=== PATIENT | male | born 1985 | race Caucasian/White ===

== ENCOUNTER 2024-01-14 08:34 | Emergency (ER) | payer MEDICAID, SELFPAY ==
[2024-01-14 08:43] VITALS: BP 134/93; PULSE 89; RESP 17; TEMP 36.4; O2SAT 97; BMI 24.3
--- NOTE | 2024-01-14 08:54 | XR_ITS ---
Examination: Ribs, left, with PA chest, 5 views Technique: Chest PA, RIBS AP, RPO, LPO, AP coned lower ribs 5 views Exam date and time: January 14, 2024 0858 hrs. Indications: Injury to the left chest today, left rib pain Findings: Normal heart size No pneumothorax No pulmonary contusion No acute rib fractures Impression: No pneumothorax pulmonary contusion or hemothorax No acute rib fractures
--- NOTE | 2024-01-14 08:54 | XR_ITS ---
Examination: Foot, left, 3 views Technique: AP, oblique, lateral views foot, 3 views Date and time of exam: January 14, 2024 0859 hrs. Indications: Redness swelling and pain involving the foot this week. Findings: Mild bunion deformity No fracture No cortical bone destruction No opaque foreign body Impression: No cortical bone destruction No opaque foreign body
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
[2024-01-14] MEDS: KETOROLAC INJ 60 MG/2 ML VIAL 30 MG IM (09:20)
== END 2024-01-14 10:43 | disposition home or self-care (01) ==
PROVIDERS: Emergency Provider Emergency Medicine; PCP Family Medicine
DX: S99.922A Unspecified injury of left foot, initial encounter (principal); L03.116 Cellulitis of left lower limb; S29.9XXA Unspecified injury of thorax, initial encounter; X58.XXXA Exposure to other specified factors, initial encounter; Y93.01 Activity, walking, marching and hiking; V19.9XXA Pedal cyclist (driver) (passenger) injured in unspecified traffic accident, initial encounter; Y93.55 Activity, bike riding; Y92.828 Other wilderness area as the place of occurrence of the external cause
CPT/HCPCS: 71101; 73630; 96372; 99283; J1885

== ENCOUNTER 2024-09-10 19:37 | Emergency (ER) | payer MEDICAID, SELFPAY ==
[2024-09-10 19:41] VITALS: BMI 23.6
--- NOTE | 2024-09-10 19:56 | XR_ITS ---
Examination: Wrist, left 3 views Technique: Wrist AP, oblique, lateral 3 views Date and time of exam: September 10, 20242021 hours INDICATIONS: Boxing injury to the hand 2 days ago, splenic pain and swelling FINDINGS: Acute impacted comminuted displaced fractures base first metacarpal Dorsal dislocation of the second metacarpal IMPRESSION: Acute comminuted displaced fracture first metacarpal Dorsal dislocation of the base of the second metacarpal
--- NOTE | 2024-09-10 19:56 | XR_ITS ---
Examination: Left hand 2 views TECHNIQUE: AP lateral left hand 2 views Date and time: September 10, 2024, 2022 hours INDICATIONS: Boxing injury 2 days ago with hand pain. FINDINGS: Acute comminuted displaced impacted fractures proximal first metacarpal Dorsal dislocation base second metacarpal Digits intact IMPRESSION: Acute impacted comminuted fractures proximal first metacarpal Dorsal dislocation base second metacarpal
[2024-09-10 20:57] VITALS: BP 131/92; PULSE 60; RESP 19; TEMP 36.6; O2SAT 98
--- NOTE | 2024-09-10 23:00 | PD.EDHAND ---
Upper Extremity Injury RME/HPI General Chief Complaint: Hand/Wrist Problems Stated Complaint: INJURY L HAND Time Seen by Provider: 09/10/24 19:45 Arrival date/time: 09/10/24 19:37 This is a case of 38-year-old male who came into the emergency room due to left hand pain and swelling along with the left wrist patient last Tuesday had boxing tournament and started to have the symptoms worsening of the symptoms this patient decided to start consult here in the emergency room denies any numbness weakness or tingling sensation Limitations: no limitations Related Data Previous Rx's ?Medication ?Instructions ?Recorded ibuprofen 800 mg tablet 800 mg PO TID PRN pain #30 tabs 12/02/23 sulfamethoxazole 800 1 tab PO BID #14 tabs 12/02/23 mg-trimethoprim 160 mg tablet (Bactrim DS) ibuprofen 600 mg tablet 600 mg PO Q8H PRN pain #20 tabs 01/14/24 Allergies Allergy/AdvReac Type Severity Reaction Status Date / Time No Known Allergies Allergy Mild NONE Uncoded 09/10/24 19:40 Review of Systems Review of Systems Systems Reviewed: All systems reviewed, normal except as documented Constitutional Constitutional: Reports system reviewed and no additional complaints, except as documented and Reports as per HPI ENT Ears, Nose, Mouth, and Throat: Denies neck pain Cardiovascular Cardiovascular: Reports system reviewed and no additional complaints, except as documented and Reports as per HPI Respiratory Respiratory: Reports system reviewed and no additional complaints, except as documented and Reports as per HPI Gastrointestinal Gastrointestinal: Reports system reviewed and no additional complaints, except as documented and Reports as per HPI Genitourinary Genitourinary: Reports system reviewed and no additional complaints, except as documented and Reports as per HPI Musculoskeletal Musculoskeletal: Reports system reviewed and no additional complaints, except as documented, Reports as per HPI, Denies abnormal gait, Denies arthralgias, Denies atrophy, Denies back pain, Denies deformity, Denies joint swelling, Denies limited range of motion, Denies loss of height, Denies muscle cramps, Denies muscle weakness, Denies myalgias, Denies neck pain, Denies numbness, Denies radiating pain into limb, Denies stiffness and Denies tingling Integumentary/Breasts Skin/Breast: Reports system reviewed and no additional complaints, except as documented and Reports as per HPI Neurologic Neurologic: Reports system reviewed and no additional complaints, except as documented, Reports as per HPI, Denies abnormal gait, Denies numbness and Denies tingling Past Medical History Past Medical History CARDIAC: Negative Congestive Heart Failure RESPIRATORY: Negative Chronic Obstructive Pulmonary Disease (COPD) GENITOURINARY: Negative Renal Disease ENDOCRINE: Negative Diabetes Mellitus Type 1 or Diabetes Mellitus Type 2 Social History SMOKING STATUS: Never smoker ED Exam General Limitations: Present no limitations General appearance: Present alert and in no apparent distress Head Head exam: Present atraumatic Eye Eye exam: Present normal appearance, PERRL and EOMI ENT ENT exam: Present normal exam, normal oropharynx and mucous membranes moist Neck Neck exam: Present normal inspection, full ROM and trachea midline Chest Chest inspection: Present normal inspection and symmetric chest wall rise Respiratory Respiratory exam: Present normal lung sounds bilaterally; Absent respiratory distress, wheezes, stridor, accessory muscle use or prolonged expiratory phase Cardiovascular Cardiovascular exam: Present regular rate, normal rhythm and normal heart sounds; Absent bradycardia, tachycardia, irregular rhythm or systolic murmur Abdominal Exam Abdominal exam: Present soft; Absent distention, tenderness, guarding, rebound, normal bowel sounds, diminished bowel sounds, hyperactive bowel sounds or hypoactive bowel sounds Extremities Exam Extremities exam: Present normal inspection and full ROM Expanded Upper Extremity Exam Forearm/Wrist exam: Present tenderness, swelling and other (ROM intact neurovascular intact); Absent abrasion, laceration, ecchymosis, deformity, crepitus, dislocation, erythema, tenderness over anatomical snuff box or pain with axial thumb loading Hand exam: Present tenderness, swelling and other (Noted moderate tenderness swelling on the dorsal aspect medial aspect of the left hand no snuffbox tenderness ROM limited pulses were full and equal capillary refill less than 2 seconds sensory); Absent abrasion, laceration, skin avulsion, ecchymosis, deformity, crepitus, dislocation, amputation, nail avulsion or subungual hematoma Back Exam Back exam: Present normal inspection and full ROM Neurological Exam Neurological exam: Present alert, oriented X3, CN II-XII intact, normal gait and reflexes normal; Absent motor sensory deficit Psychiatric Psychiatric exam: Present normal affect and normal mood Skin Skin exam: Present warm, dry, intact and normal color Course Quality Measures none Orders Category Date Time Status Splint / Immobilizer STAT Care 09/10/24 21:42 Active XR hand LT 2V Stat Exams 09/10/24 19:56 Completed XR wrist LT 2V Stat Exams 09/10/24 19:56 Completed HYDROcodone*/APAP 5/325 [Cameron 5/325] Med 09/10/24 21:42 Discontinued 1 tab PO X1 ONE Vital Signs Vital signs: Vital Signs Temperature 98 F 09/10/24 20:57 Pulse Rate 60 09/10/24 20:57 Respiratory Rate 19 09/10/24 20:57 Blood Pressure 131/92 H 09/10/24 20:57 Pulse Oximetry (%) 98 09/10/24 20:57 Oxygen Delivery Method Room Air 09/10/24 20:57 Oxygen saturation 98% in room Extremity Injury MDM Narrative MDM Narrative:: This is a case of 38-year-old male who came into the emergency room due to left hand pain and swelling along with the left wrist patient last Tuesday had boxing tournament and started to have the symptoms worsening of the symptoms this patient decided to start consult here in the emergency room denies any numbness weakness or tingling sensation physical examination patient is awake alert oriented not in distress nontoxic looking noted tenderness swelling on the left wrist ROM is intact neurovascular intact there is a marked swelling and tenderness on the left hand no snuffbox tenderness no crepitation no deformity ROM limited neurovascular intact x-ray showed a metacarpal fracture of the 1st and 2nd left hand a thumb spica volar splint was applied patient tolerated well neurovascular intact I have a long discussion with the patient importance to see an orthopedic surgeon for further evaluation and treatment of the fracture was advised RICE treatment will continue by the patient at home patient was given Cameron here in the emergency room and prescribed ibuprofen for any worsening symptoms he is informed to return in the emergency room immediately or call [phone] Patient was discharged with comfortable condition walking with stable gait. Patient verbalized no further complains explained diagnosis and answered patient question. Patient is comfortable with the proposed management plan including the need to follow up with his/her primary care physician and any specialist if applicable Discussed patient for any urgent condition or worsening sx, He/She needed to go to emergency room immediately or call 911. Patient acknowledge the responsibility to follow up as instructed and to monitor her/his symptoms. For any persistence of the symptoms for more than 3-5 days return precaution advised. Discussed the result of the test and was given printed discharge instruction Patient data External records reviewed:: [facility] previous records Clinical information provided by:: patient Social determinants that could affect healthcare access:: none Patient has the following chronic illnesses:: None How is presenting disease/condition affected by chronic disease/condition?: no chronic disease Evaluation data The following diagnostics were reviewed and interpreted by me:: radiology exam(s) Lab and/or radiology exams considered but not ordered:: Reviewed Interpretation Summary: Reviewed Medications / Prescriptions Medications or Prescriptions considered but not ordered:: Given Medication administrations:: Medication Administration History Discontinued Medications Hydrocodone Bitart/Acetaminophen (Hydrocodone/Apap 5/325 Tablet) 1 tab PO X1 ONE Stop: 09/10/24 21:43 Given Consultations Consultation(s) initiated? (list below): No Diagnosis Upper Extremity Injury Differential Diagnosis: other (Metacarpal fracture sprain) Most likely diagnosis given after review of the tests above:: Metacarpal fracture Admission Indicated Admission indicated?: not indicated Explain why admission is indicated or not indicated:: Not indicated Admission Request Was there a request for admission?: No Disposition Plan Disposition Plan: Discharge Discharge Attestation Discharge Attestation: The patient and all family members were given an opportunity to ask questions and understood the discharge instructions. Discharge instructions specifically effects, indications for sooner follow up or return to the emergency department, and the expected course of current diagnosis. Patient condition: Stable Discharge Plan Plan Patient Disposition: HOME (Self Care) Prescriptions/Referrals Prescriptions/Med Rec: No Action sulfamethoxazole-trimethoprim [Bactrim DS] 800-160 mg tablet 1 tab PO BID Qty: 14 0RF ibuprofen 800 mg tablet 800 mg PO TID PRN (Reason: pain) Qty: 30 0RF ibuprofen 600 mg tablet 600 mg PO Q8H PRN (Reason: pain) Qty: 20 0RF Referrals: Pérez Carr MD [Primary Care Provider] - In 1 week Alessio Stauffer MD [Physician] - 09/11/24 (For further evaluation and treatment of 1st and 2nd metacarpal left hand) Problem List Clinical Impression: Fracture of first metacarpal bone of left hand, Closed fracture of second metacarpal bone of left hand, Left wrist sprain Patient/Caregiver Discharge Instructions Education Materials: Treating Hand Fractures, ED Closed Hand Fracture (Adult), ED Splint Care, Fiberglass, ED Wrist Sprain, ED RICE Additional Instructions: Follow-up with your primary care physician in 2 days for reevaluation and to be referred to orthopedic surgeon for further evaluation and treatment of 1st and 2nd metacarpal fracture of the left hand worsening symptoms or any emergent concerns such as numbness weakness tingling sensation call 911 or go to the nearest emergency room ice pack every 2 hours for 20 minutes for 24 hours then alternate with warm compress elevate to decrease swelling keep the splint in place until cleared by your primary care physician Print Language: Kazakh Stand Alone Forms: Dinora Award Info., Patient Portal Info Letter PA/AUTO DEALER Supervising Physician PA/ELVIS Supervising Physician: dr [email or web address]
[2024-09-10] MEDS: HYDROcodone/APAP 5/325 TABLET 1 TAB PO (23:03)
== END 2024-09-10 23:45 | disposition home or self-care (01) ==
PROVIDERS: Emergency Provider Emergency Medicine; PCP Family Medicine
DX: S62.202A Unspecified fracture of first metacarpal bone, left hand, initial encounter for closed fracture (principal); S62.301A Unspecified fracture of second metacarpal bone, left hand, initial encounter for closed fracture; Y93.71 Activity, boxing; S63.502A Unspecified sprain of left wrist, initial encounter
CPT/HCPCS: 29125; 73100; 73120; 99283; A9270